=== PATIENT | female | born 1950 | race Caucasian/White ===

== ENCOUNTER 2018-01-27 11:54 | Inpatient (IN) | payer MEDICARE ==
[~2018-01-27] VITALS: Ht 162.6 cm; Wt 57.2 kg
[2018-01-27 11:55] VITALS: BP 134/53
[2018-01-27 12:38] LABS: BASOPHILS % (AUTO) 1.1 % (0.0-2.0); EOSINOPHILS % (AUTO) 3.5 % (0.0-3.0); HEMATOCRIT 42.8 % (37.0-47.0); HEMOGLOBIN 14.1 G/DL (12.0-16.0); LYMPHOCYTES % (AUTO) 28.9 % (20.0-45.0); MEAN CORPUSCULAR VOLUME 89 FL (80-99); MONOCYTES % (AUTO) 7.8 % (1.0-10.0); NEUTROPHILS % (AUTO) 58.8 % (45.0-75.0); PLATELET COUNT 234 K/UL (150-450); RED CELL DISTRIBUTION WIDTH 12.2 % (11.6-14.8); WHITE BLOOD COUNT 5.8 K/UL (4.8-10.8)
[2018-01-27 13:00] VITALS: BP 122/63
[2018-01-27 13:25] LABS: ANION GAP 6 mmol/L (5-15); BLOOD UREA NITROGEN 17 mg/dL (7-18); CALCIUM 9.4 MG/DL (8.5-10.1); CARBON DIOXIDE 30 MMOL/L (21-32); CHLORIDE 102 MMOL/L (98-107); CREATININE 0.7 MG/DL (0.55-1.30); POTASSIUM 5.5 MMOL/L (3.5-5.1); SODIUM 138 MMOL/L (136-145)
[2018-01-27 13:36] LABS: ALANINE AMINOTRANSFERASE 27 U/L (12-78); ALBUMIN 4.2 G/DL (3.4-5.0); ALBUMIN/GLOBULIN RATIO 1.3 (1.0-2.7); ALKALINE PHOSPHATASE 76 U/L (46-116); ASPARTATE AMINO TRANSFERASE 20 U/L (15-37); BILIRUBIN,TOTAL 0.7 MG/DL (0.2-1.0)
[2018-01-27 14:00] VITALS: BP 126/50
[2018-01-27] MEDS ORDERED: WELLBUTRIN SR150 M1 PO (14:17)
[2018-01-27] MEDS ORDERED: ZANTAC150 MG ORAL (14:17)
--- NOTE | 2018-01-27 14:51 | Emergency Room Report ---
History of Present Illness General Chief Complaint: Chest Pain Source: Patient Present Illness HPI 67yo F p/w 1 hour of chest and L scapula pain that started while she was standing doing her makeup. She has never had this kind of pain before, and never had a cardiac evaluation. She just flew from out of town as she is here visiting family. Pain is sharp, MS, and L scapular, worse with taking deep breaths, moderate intensity. Allergies: Coded Allergies: No Known Allergies (Unverified , 01/27/18) Patient History Past Medical History: see triage record Now: No Reviewed Nursing Documentation: PMH: Agreed, PSxH: Agreed Nursing Documentation-PMH Past Medical History: No Stated History Review of Systems All Other Systems: negative except mentioned in HPI Physical Exam Vital Signs Date Time Temp Pulse Resp B/P (MAP) Pulse Ox O2 Delivery O2 Flow Rate FiO2 01/27/18 11:38 97.6 84 16 169/73 98 Room Air 97.5 Sp02 EP Interpretation: reviewed, normal General Appearance: no apparent distress, alert, non-toxic Head: normocephalic Eyes: bilateral eye normal inspection, bilateral eye PERRL, bilateral eye EOMI ENT: normal ENT inspection, hearing grossly normal, normal pharynx, no angioedema, normal voice, moist mucus membranes Neck: normal inspection, full range of motion, supple, supple/symm/no masses Respiratory: chest non-tender, lungs clear, normal breath sounds, chest symmetrical, palpation of chest normal Cardiovascular #1: normal peripheral pulses, regular rate, rhythm Cardiovascular #2: 2+ radial (R), 2+ radial (L), 2+ dorsalis pedis (R), 2+ dorsalis pedis (L) Gastrointestinal: normal inspection, non tender, soft, no mass, no guarding, no rebound Rectal: deferred Genitourinary: normal inspection, no CVA tenderness Musculoskeletal: back normal, gait/station normal, normal range of motion, non- tender, no calf tenderness Neurologic: alert, responsive, 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 pericarditis, given respiraphasic nature of pain and negative cta chest. EKG and initial labs also normal. But, pt still with cp and L scapula pain, which is also concerning for ACS. Given full dose ASA, admitted to Dr. Abreu. EKG Diagnostic Results EKG Time: 11:46 Rate: normal Rhythm: NSR ST Segments: no acute changes ASA given to the pt in ED: Yes Rhythm Strip Diag. Results Rhythm Strip Time: 14:48 EP Interpretation: yes Rate: 73 Rhythm: NSR, no PVC's, no ectopy CT/MRI/US Diagnostic Results CT/MRI/US Diagnostic Results : Imaging Test Ordered: cta chest Impression negative for PE, negative for any other acute abnormality, incidental small nodule seen in this non-smoker is likely benign Last Vital Signs Date Time Temp Pulse Resp B/P (MAP) Pulse Ox O2 Delivery O2 Flow Rate FiO2 01/27/18 14:00 68 21 126/50 100 Room Air 01/27/18 11:55 98.0 98.0 Status: improved Disposition: PLACE IN OBSERVATION Admit Decision Time: 14:49 Condition: Stable Signed Out To: Dr. Abreu accepted for cp rule out CA Referrals: NON PHYSICIAN (PCP) JONATHAN AGARWAL M.D Jan 27, 2018 14:51
[2018-01-27 15:00] VITALS: BP 128/58
[2018-01-27 16:00] VITALS: BP 146/73
[2018-01-27] MEDS ORDERED: Norco 5mg/325mg tab ORAL PRN ×2 (18:45)
[2018-01-27] MEDS ORDERED: Mylanta II UD 30ml ORAL PRN (18:45)
[2018-01-27] MEDS ORDERED: Milk of Magnesia 30ml Ud ORAL PRN (18:45)
[2018-01-27] MEDS ORDERED: Zolpidem 5mg tab ORAL PRN (18:45)
[2018-01-27 20:00] VITALS: BP 125/63
[2018-01-27] MEDS: Enoxaparin 60mg Inj SUBQ SCH (22:32)
[2018-01-28] VITALS: BP 105/68
[2018-01-28 04:00] VITALS: BP 103/57
[2018-01-28 07:36] LABS: ALANINE AMINOTRANSFERASE 23 U/L (12-78); ALBUMIN 3.4 G/DL (3.4-5.0); ALBUMIN/GLOBULIN RATIO 1.2 (1.0-2.7); ALKALINE PHOSPHATASE 60 U/L (46-116); ANION GAP 6 mmol/L (5-15); ASPARTATE AMINO TRANSFERASE 16 U/L (15-37); BILIRUBIN,TOTAL 0.3 MG/DL (0.2-1.0); BLOOD UREA NITROGEN 14 mg/dL (7-18); CARBON DIOXIDE 28 MMOL/L (21-32); CHLORIDE 106 MMOL/L (98-107); CHOLESTEROL 177 MG/DL (< 200); CREATININE 0.6 MG/DL (0.55-1.30); HDL CHOLESTEROL 91 MG/DL (40-60); POTASSIUM 4.1 MMOL/L (3.5-5.1); SODIUM 140 MMOL/L (136-145); TRIGLYCERIDES 23 MG/DL (30-150)
[2018-01-28 08:00] VITALS: BP 113/61
[2018-01-28 09:26] LABS: BASOPHILS % (AUTO) 0.9 % (0.0-2.0); EOSINOPHILS % (AUTO) 3.9 % (0.0-3.0); HEMATOCRIT 37.6 % (37.0-47.0); HEMOGLOBIN 12.6 G/DL (12.0-16.0); LYMPHOCYTES % (AUTO) 36.4 % (20.0-45.0); MEAN CORPUSCULAR VOLUME 88 FL (80-99); MONOCYTES % (AUTO) 8.4 % (1.0-10.0); NEUTROPHILS % (AUTO) 50.5 % (45.0-75.0); PLATELET COUNT 199 K/UL (150-450); RED BLOOD COUNT 4.26 M/UL (4.20-5.40); RED CELL DISTRIBUTION WIDTH 12.1 % (11.6-14.8); WHITE BLOOD COUNT 5.4 K/UL (4.8-10.8)
[2018-01-28] MEDS: Enoxaparin 60mg Inj SUBQ SCH ×2 (09:48→21:26)
--- NOTE | 2018-01-28 10:05 | Diagnostic Imaging Report ---
Indication: Chest pain Technique: CT pulmonary angiogram performed utilizing automated exposure control with intravenous contrast. Axial, sagittal and coronal reconstructions were obtained. 3-D volumetric reconstructions were also performed. CT dose: Total DLP 495 mGycm; CTDI vol 15.3 mGy Comparison: None Findings: There is no central pulmonary embolus or aortic dissection. The thoracic aorta is normal in caliber. Mild atherosclerotic changes are present. There is no consolidation. Mild dependent atelectasis is noted. There is an approximately 4 mm noncalcified subpleural nodule in the left lower lobe series 7 image 76. There is no bulky adenopathy. Small cysts are seen in the partially visualized left lobe of the liver. Degenerative changes of the spine are present. Impression: No central pulmonary embolus or aortic dissection. Mild dependent atelectasis. Approximately 4 mm noncalcified subpleural nodule of the left lower lobe series 7 image 76. Follow-up recommended as indicated. Other findings as above. The CT scanner at [facility] is accredited by the [employer] [place] [employer] and the scans are performed using protocols designed to limit radiation exposure to as low as reasonably achievable to attain images of sufficient resolution adequate for diagnostic evaluation.
[2018-01-28] MEDS: BuPROPion SR 150mg tab ORAL SCH (10:41)
[2018-01-28 12:00] VITALS: BP 112/69
[2018-01-28 16:00] VITALS: BP 104/69
[2018-01-28] MEDS ORDERED: Lexiscan 0.4mg/5ml syringe IV SCH (16:00)
--- NOTE | 2018-01-28 16:08 | Cardiology Report ---
APPROVED REPORT EKG Measurement Heart [id number] Poor data quality, interpretation may be adversely affected Normal sinus rhythm Possible septal infarct, age undetermined Abnormal ECG
--- NOTE | 2018-01-28 16:27 | Cardiology Report ---
APPROVED REPORT EKG Measurement Heart [id number] Normal sinus rhythm Low voltage QRS Nonspecific ST and T wave abnormality Abnormal ECG
[2018-01-28 20:00] VITALS: BP 114/62
--- NOTE | 2018-01-28 20:00 | History and Physical Report ---
DATE OF ADMISSION: 01/27/2018 REASON FOR ADMISSION: Possible chest pain, acute coronary syndrome. HISTORY OF PRESENT ILLNESS: This is a 67-year-old female, who presents with chest pain, which is left scapular, noted at rest. The patient has had no significant history of cardiac disease. The patient apparently just flew from out of town and here visiting. The patient notes the pain to be worse with deep inspiration. The patient is seen and evaluated in the emergency room. She had an EKG. It showed no acute changes and had a CT of the chest, which is negative for pulmonary embolism, but small nodule. The patient now being admitted for further care and management. PAST MEDICAL HISTORY: Notable for the above. The patient has occasional gastritis. MEDICATIONS: Reviewed. SOCIAL HISTORY: Nonsmoker and nondrinker. The patient is independent. REVIEW OF SYSTEMS: All 10 points reviewed and otherwise negative. PHYSICAL EXAMINATION: GENERAL: A well-developed female, comfortable at present. No significant distress. VITAL SIGNS: Blood pressure 103/57, pulse 61, respirations 18, temperature 97.7 degrees, and saturation 95%. HEENT: Fairly negative. The patient's extraocular movements are grossly intact. NECK: Supple. No adenopathy. LUNGS: With good air entry. No rhonchi or wheezes. No rales. CARDIAC: Normal S1 and S2. Regular rate and rhythm without murmurs, rubs, or gallops. ABDOMEN: Soft, nontender, and nondistended. EXTREMITIES: No cyanosis, clubbing, or edema. NEUROLOGIC: Grossly nonfocal, fully alert. LABORATORY DATA: Reviewed. IMPRESSION: 1. Pleuritic chest pain with negative CT pulmonary angiogram. 2. Possible acute coronary syndrome, unclear at this time. 3. History of gastritis. RECOMMENDATIONS: Serial troponins, negative thus far. Followup laboratories. Followup duplex. Followup V/Q scan. Full dose Lovenox for now, but likely can discontinue pending the above noted results. At present, no significant pulmonary embolism noted on examination by CAT scan. Cali Abreu M.D. DR: Cecilia JOB#: [id number] CC:
[2018-01-29] VITALS: BP 115/63
--- NOTE | 2018-01-29 03:45 | Consultation ---
DATE OF CONSULTATION: 01/27/2018 CARDIOLOGY CONSULTATION CONSULTING PHYSICIAN: Darnell Ayala M.D. REQUESTING PHYSICIAN: Cali Abreu M.D. REASON FOR CONSULTATION: Chest pain. HISTORY OF PRESENT ILLNESS: This is a 67-year-old female with no known prior history of cardiovascular disease. She is visiting from out of town. She flew here earlier today. She noted chest pain that started in her back and scapular region and radiating forward with associated shortness of breath. The symptoms were severe and worse and she came to the emergency room. Her admission EKG revealed sinus rhythm with low voltage, but no acute pathology. CT angiogram of the chest was negative for pulmonary embolism, but a small nodule was noted. Troponin level #1 was negative. PAST MEDICAL HISTORY: Gastritis. MEDICATIONS: Reviewed. ALLERGIES: None. SOCIAL HISTORY: Negative for smoking, alcohol, or substance abuse. REVIEW OF SYSTEMS: No fevers or chills. No cough or sputum production. No history of thyroid disorder or diabetes. No history of seizure or stroke. No change in bowel habits. No acidity today. No change in urination. Denies frequency or dysuria. PHYSICAL EXAMINATION: VITAL SIGNS: Blood pressure is 105/64, pulse 62, respiratory rate 18 and afebrile. GENERAL: Appears well. No distress. NECK: Supple. Jugular venous pressure normal. Oropharynx clear. LUNGS: Clear. CHEST WALL: Without deformity or tenderness. No breast masses. CARDIAC: Regular rhythm and rate. Normal S1, S2 with no murmur, rub, or gallop. ABDOMEN: Soft and nontender. EXTREMITIES: Without edema. NEUROLOGIC: Nonfocal. LABORATORY DATA: Reviewed. IMPRESSION: 1. Pleuritic chest pain. 2. Recent travel history with increasing risk both for deep venous thrombosis and pulmonary embolism. 3. History of gastritis. 4. Low clinical suspicion for acute coronary thrombosis. PLAN: 1. Anti-platelet therapy with aspirin. 2. Cardiac monitoring. 3. V/Q scan. 4. Venous Duplex scan of lower extremity. 5. Serial troponins. 6. Consider myocardial perfusion scan for assessment of coronary flow reserve. 7. Check lipid panel. 8. We will follow. Darnell Ayala M.D. DR: Nola JOB#: [id number] CC: ZANDER
--- NOTE | 2018-01-29 03:45 | Progress Note ---
DATE: 01/28/2018 CARDIOLOGY PROGRESS NOTE SUBJECTIVE: Troponins are negative. No chest pain or shortness of breath. Still has some back discomfort. OBJECTIVE: VITAL SIGNS: Blood pressure is 104/69, pulse 66, respiratory rate 18, no fevers. NECK: Supple. LUNGS: Clear. Jugular venous pressure normal. Carotid upstrokes without delay. CARDIAC: Regular rhythm and rate. Normal S1, S2 with no murmur. ABDOMEN: Soft. EXTREMITIES: Without edema. IMPRESSION: 1. Pleuritic chest pain. 2. Low likelihood for coronary insufficiency. 3. Recent travel history with prolonged immobilization. 4. Increases risk for deep venous thrombosis and pulmonary emboli. PLAN: 1. V/Q scan has been ordered despite recent negative CT angiogram of the chest. 2. Lipid panel was reviewed, no additional anti-lipid therapy is indicated. 3. We will continue aspirin prophylaxis. 4. We will obtain noninvasive assessment of coronary flow reserve prior to discharge. Darnell Ayala M.D. DR: RIGOBERTO JOB#: [id number] CC:
[2018-01-29 04:30] VITALS: BP 109/58
[2018-01-29 08:00] VITALS: BP 121/67
[2018-01-29] MEDS ORDERED: Lexiscan 0.4mg/5ml syringe IV PRN (08:00)
[2018-01-29] MEDS: BuPROPion SR 150mg tab ORAL SCH (08:34)
[2018-01-29] MEDS: Enoxaparin 60mg Inj SUBQ SCH (08:37)
--- NOTE | 2018-01-29 09:53 | Cardiology Report ---
APPROVED REPORT EXAM: Two-dimensional and M-mode echocardiogram with Doppler and color Doppler. INDICATION Chest Pain M-Mode DIMENSIONS IVSd0.7 (0.7-1.1cm)Left Atrium (MM)3.2 (1.6-4.0cm) LVDd4.2 (3.5-5.6cm)Aortic Root2.7 (2.0-3.7cm) PWd0.8 (0.7-1.1cm)Aortic Cusp Exc.1.8 (1.5-2.0cm) LVDs2.5 (2.5-4.0cm) PWs1.0 cm Normal left ventricular chamber size, systolic function and wall motion. Left ventricular ejection fraction estimated to be 60-65%. No evidence of left ventricular hypertrophy. No evidence of pericardial or pleural effusion. All other cardiac chamber sizes are within normal limits. Focal aortic valve sclerosis with adequate cusp excursion. Thickened mitral valve leaflets with normal excursion. Mild mitral annulus and aortic root calcification. Pulmonic valve not well visualized. Normal tricuspid valve structure. IVC is normal in size and collapsible with respiration. A color flow and spectral Doppler study was performed and revealed: No aortic regurgitation. No mitral regurgitation. Mitral inflow velocities indicates possible pseudo normalization pattern implying significant left ventricular diastolic dysfunction. Mild tricuspid regurgitation. Tricuspid systolic velocities suggests peak right ventricular systolic pressure of 28mmHg Pulmonic regurgitation present.
--- NOTE | 2018-01-29 11:30 | General Progress Note ---
Assessment/Plan Assessment/Plan IMPRESSION: 1. Pleuritic chest pain with negative CT pulmonary angiogram. 2. Possible acute coronary syndrome, unclear at this time. 3. History of gastritis PLAN await stress if negative, dc home NSAIDS as needed avoid heavy exercise follow up with PMD. Subjective Allergies: Coded Allergies: No Known Allergies (Unverified , 01/27/18) Subjective pain improved per cards, stress ordered echo negative Objective Last 24 Hour Vital Signs Date Time Temp Pulse Resp B/P (MAP) Pulse Ox O2 Delivery O2 Flow Rate FiO2 01/29/18 08:00 77 01/29/18 08:00 97.7 68 18 121/67 97 Room Air 97.7 01/29/18 04:30 97.9 58 18 109/58 95 Room Air 97.9 01/29/18 04:08 60 01/29/18 00:07 67 01/29/18 00:00 97.9 70 20 115/63 94 Room Air 97.9 01/28/18 20:00 98.0 70 20 114/62 94 Room Air 98.0 01/28/18 19:56 72 01/28/18 16:00 72 01/28/18 16:00 97.7 66 18 104/69 98 Room Air 97.7 01/28/18 12:00 71 01/28/18 12:00 97.7 70 18 112/69 98 Room Air 97.7 Intake and Output 01/28/18 01/29/18 19:00 07:00 Intake Total 820 ml 1000 ml Balance 820 ml 1000 ml Intake Oral 720 ml IV Total 100 ml 1000 ml # Voids 4 Height (Feet): 5 Height (Inches): 4.00 Weight (Pounds): 126 Objective WDWN NAD clear breath sounds bilaterally without rhonchi or wheeze [id number] without MRG NABS nontender no HSM no CCE nonfocal BLADE BOLTON Jan 29, 2018 11:30
--- NOTE | 2018-01-29 15:42 | Diagnostic Imaging Report ---
Indications: Chest pain Technique: Single day single isotope protocol utilized. Initially, resting images obtained using IV administration 10.9 millicuries 99M technetium Myoview. Subsequently, patient underwent treadmill stress testing. See cardiology report for details. During exercise, IV administration 31.4 mCi 99 M technetium Myoview. SPECT and planar images obtained. SPECT images gated to 8 phases of the cardiac cycle were also obtained, and reformatted into cine images for evaluation of ejection fraction. Comparison: none Findings: Per cardiology report, patient experienced no symptoms. Per cardiology report, resting EKG demonstrates normal sinus rhythm. Presence or absence of EKG changes during infusion is not recorded. Patient reached peak exercise heart rate of 139 bpm, in excess of the targeted heart rate of 129 bpm. Imaging demonstrates normal poststress perfusion, no fixed nor reversible post-rest perfusion defects. Normal cardiac chamber size.. Calculated post stress ejection fraction 90%. No focal wall motion abnormality demonstrated Impression: Nonischemic clinical response to pharmacologic stress, per cardiology report Nonischemic electrocardiographic response to pharmacologic stress, per cardiology report No imaging findings to suggest ischemia, at level of stress achieved. Calculated post stress ejection fraction greater than 70%
[2018-01-29] MEDS ORDERED: Tubing IV Secondary IV ONE (16:10)
--- NOTE | 2018-01-30 03:45 | Progress Note ---
DATE: 01/29/2018 CARDIOLOGY PROGRESS NOTE SUBJECTIVE: Chest pain has decreased. OBJECTIVE: VITAL SIGNS: Blood pressure 121/67, pulse 68, and respirations 18. NECK: Supple. CHEST WALL: No chest wall tenderness LUNGS: Clear. CARDIAC: Regular. Normal S1, S2. ABDOMEN: Soft. EXTREMITIES: No edema. LABORATORY AND DIAGNOSTIC DATA: Troponins have been negative. personnel monitor with sinus rhythm. Myocardial perfusion scan reveals nonischemic response with normal ejection fraction. IMPRESSION: Chest pain was likely musculoskeletal, no evidence of pulmonary embolus or acute coronary insufficiency and coronary flow reserve is adequate. PLAN: No additional cardiovascular workup. Outpatient followup. A p.r.n. analgesics. Maintain aspirin prophylaxis. Darnell Ayala M.D. DR: NIYA JOB#: [id number] CC:
--- NOTE | 2018-02-01 09:41 | Discharge Summary ---
Discharge Summary Hospital Course Date of Admission Jan 27, 2018 at 13:20 Date of Discharge Jan 29, 2018 at 16:11 Admitting Diagnosis CP HPI Miracle Doshi is a 67 year old female who was admitted on Jan 27, 2018 at 13: 20 for Chest Pain Hospital Course dc summary #[id number] Discharge Medications Continued Medications: Bupropion HCl (Wellbutrin Sr) 150 Mg Tablet.er 150 MG PO DAILY, TAB Ranitidine Hcl* (Zantac*) 150 Mg Tablet 150 MG ORAL TWICE A DAY, TAB Discharge Condition Upon Discharge: stable Discharge Disposition Patient was discharged to Home (01) Discharge Diagnoses: Discharge Instructions Discharge Instructions Special Instructions I have been assigned to complete a D/C Summary on this account. I was not involved in the patient management Lilliana Jett NP (Vanchtein) Feb 01, 2018 09:41
--- NOTE | 2018-02-01 15:45 | Discharge Summary 2 SIG ---
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 She never had this kind of pain before and never had cardiac evaluation. She came to the [place] to visit family. The pain was sharp, worse with taking deep breath, and moderate intensity. The patient was afebrile. Blood pressure initially -169/73, pulse oximetry stable on room air. Troponin negative. EKG showed normal sinus rate. No acute ischemic changes. CTA revealed no evidence of pulmonary emboli or aortic dissection, but showed incidental small nodule in nonsmoker patient, which was likely benign. Repeated blood pressure -126/50. Aspirin was given. The patient admitted with diagnoses of chest pain, possible acute coronary syndrome, and pleuritic chest pain. HOSPITAL COURSE: The patient was admitted to telemetry floor. The patient initially started on anticoagulation with Lovenox Serial troponin x2 were negative. EKG showed no acute ischemic changes. Therefore, the patient was ruled out for acute [place]. Cardiology consult requested. Echocardiogram revealed preserved ejection fraction of 60% to 65%, right ventricular systolic pressure of 28. Lipid panel was stable with LDL - 84 and total cholesterol - 177. The patient with recent traveling and history of long immobilization was at high risk for both for DVT and PE. CTA was done in ED and was negative for PE. Venous duplex bilateral lower extremity was done and was negative as well. According to porcelain enamel installer, there was low suspicion for acute coronary thrombosis. Per porcelain enamel installer, chest pain was likely of musculoskeletal origin, and resolved. NSAIDs recommended as needed. Pleuritic chest pain less likely given the absence of pleurisy. However, the patient had a stress test, which was nonischemic with a calculated ejection fraction more than 70%. The patient with a history of gastritis. No abdominal pain. No nausea. No vomiting. Bowel regimen instituted. Lovenox, initiated on admission, stopped. The patient was stable for discharge home. FINAL DIAGNOSES: 1. Chest pain, most likely of musculoskeletal origin possibly due to costochondritis (no evidence of PE, no evidence of coronary insufficiency), 2. Less likely pleuritic chest pain ( no evidence of pleurisy) 3. History of gastritis. DISCHARGE MEDICATIONS: See medication reconciliation list. DISCHARGE INSTRUCTIONS: The patient was instructed to take nonsteroid anti-inflammatory medication as needed and avoid heavy exertion. Follow up with primary care provider Cali Abreu M.D. I have been assigned to dictate discharge summary on this account and I was not involved in the patient's management. Lilliana Jett N.P. (Vanchtein) DR: CHIVO JOB#: [id number] CC: ZANDER
== END 2018-01-29 16:11 | disposition home or self-care (01) | DRG 313 ==
LOC: EDBD 11:54 → EMR 13:12 → 2E 13:20 → EDBEDREQ 13:27 → EDBEDREQSVC 13:37 → EDBEDREQ 14:42 → EDBEDREQSVC 15:08 → EDBEDREQ 15:14
DX: R07.89 Other chest pain (principal); R07.1 Chest pain on breathing; Z87.19 Personal history of other diseases of the digestive system
CPT/HCPCS: 36415; 71275; 78452; 80053; 80061; 83880; 84443; 84484; 85025; 93005; 93017; 93306; 93970; 99285